=== PATIENT | female | born 1945 | race African-American/Black ===

== ENCOUNTER 2019-03-21 18:35 | Emergency (ER) | payer OTHER ==
[~2019-03-21] VITALS: Ht 154.9 cm; Wt 53.5 kg
--- NOTE | 2019-03-21 18:49 | NUR ---
ED Nurse Note: PT FROM HOME PRESENTS TO ED WITH VAGINAL PAIN THAT RADIATES TO HER LEFT SIDE OF ABDOMEN WHICH STARTED AN HOUR PRIOR ED ARRIVAL. DENIES VAGINAL BLEEDING OR DISCHARGE. AAO X4, AMBULATORY.
[2019-03-21] MEDS ORDERED: Omnipaque-300 100ml vial INJ PRN (19:00)
--- NOTE | 2019-03-21 19:09 | NUR ---
HAND-OFF: Report given to SONIA SPENCE.
[2019-03-21 19:24] LABS: APPEARANCE,URINE SLIGHTLY CLOUDY; BILIRUBIN, URINE NEGATIVE (NEGATIVE); COLOR,URINE PALE YELLOW; GLUCOSE, URINE (UA) NEGATIVE (NEGATIVE); KETONES,URINE NEGATIVE (NEGATIVE); LEUKOCYTE ESTERASE ,URINE 3+ (NEGATIVE); NITRITE,URINE NEGATIVE (NEGATIVE); PH,URINE 6 (4.5-8.0); PROTEIN,URINE 2+ (NEGATIVE); UROBILINOGEN,URINE NORMAL MG/DL (0.0-1.0)
[2019-03-21 19:53] LABS: HEMATOCRIT 31.6 % (37.0-47.0); HEMOGLOBIN 10.5 G/DL (12.0-16.0); MEAN CORPUSCULAR VOLUME 84 FL (80-99); PLATELET COUNT 178 K/UL (150-450); RED BLOOD COUNT 3.76 M/UL (4.20-5.40); RED CELL DISTRIBUTION WIDTH 11.9 % (11.6-14.8); WHITE BLOOD COUNT 14.6 K/UL (4.8-10.8)
[2019-03-21 20:07] LABS: ALANINE AMINOTRANSFERASE 25 U/L (12-78); ALBUMIN 4.7 G/DL (3.4-5.0); ALBUMIN/GLOBULIN RATIO 1.6 (1.0-2.7); ALKALINE PHOSPHATASE 101 U/L (46-116); ANION GAP 10 mmol/L (5-15); ASPARTATE AMINO TRANSFERASE 24 U/L (15-37); BILIRUBIN,TOTAL 0.5 MG/DL (0.2-1.0); BLOOD UREA NITROGEN 26 mg/dL (7-18); CALCIUM 10.5 MG/DL (8.5-10.1); CARBON DIOXIDE 29 MMOL/L (21-32); CHLORIDE 107 MMOL/L (98-107); CREATININE 0.8 MG/DL (0.55-1.30); SODIUM 145 MMOL/L (136-145)
[2019-03-21] MEDS ORDERED: cefTRIAXone 1 GM in NS 55 ML IVPB ONE (20:15)
--- NOTE | 2019-03-21 21:45 | Diagnostic Imaging Report ---
Indication:Lower abdominal and pelvic pain Technique: Grayscale and duplex Doppler imaging of the abdomen pelvis performed utilizing a transabdominal scan. No endovaginal study performed per ordering M.D. Comparison: None Findings: The liver is echogenic consistent with fatty infiltration. Gallbladder is unremarkable. There is no ascites. There is a 7 mm cyst within the right kidney. Aorta is unremarkable. CBD measures 2 mm. No hydronephrosis identified. The demonstrated part of the pancreas appears normal. There is a calcified mass in the posterior part of the pelvis demonstrated. This may be part of the uterus which is noted adjacently. Please refer to the CT report for more information. The mass on this exam as about 4 cm measurement but is poorly seen due to dense calcification and shadowing. Urinary bladder is unremarkable. Neither ovary is seen. IMPRESSION: Fatty liver. Calcified mass within the pelvis. Please refer to the CT report for more information.
--- NOTE | 2019-03-21 21:45 | Emergency Room Report ---
History of Present Illness General Chief Complaint: Abdominal Pain Source: Patient Present Illness HPI 73-year-old female with history of an unknown cancer as she is unsure of what kind of cancer she has as well as uterine prolapse here complaining of sudden onset of vaginal pain that is radiating to left lower quadrant that started an hour prior to arrival to [facility] today. Rating the pain 10 out of 10 however reporting it is subsided upon arrival denying any vaginal discharge or urinary frequency and urgency. Denies fever and chills, chest pain, shortness of breath, palpitation, diffuse abdominal pain, nausea vomiting. Patient reports that she was diagnosed with possible leukemia and however it could be some other cancer as she is unsure whether it was leukemia or another cancer and is under the care of oncologist without any chemotherapy or resection. Reports that every 3 months she gets checked for cancer and has had CAT scan and PET scan done recently without any changes in comparison to previous imaging. Has not taken medication for symptom relief. Patient is also taking tramadol for sciatic pain. Denies constipation or diarrhea. Allergies: Coded Allergies: No Known Allergies (Unverified , 03/21/19) Patient History Past Medical History: see triage record Past Surgical History: unable to obtain Pertinent Family History: none Now: No Immunizations: UTD Reviewed Nursing Documentation: PMH: Agreed; PSxH: Agreed Nursing Documentation-PMH Past Medical History: No History, Except For Hx Cancer: Yes Review of Systems All Other Systems: negative except mentioned in HPI Physical Exam Vital Signs Date Time Temp Pulse Resp B/P (MAP) Pulse Ox O2 Delivery O2 Flow Rate FiO2 03/21/19 18:39 98.2 70 18 149/80 (103) 96 Room Air Sp02 EP Interpretation: reviewed, normal General Appearance: no apparent distress, alert, GCS 15, non-toxic Head: normocephalic, atraumatic Eyes: bilateral eye normal inspection, bilateral eye PERRL ENT: hearing grossly normal, normal pharynx, no angioedema, normal voice Neck: full range of motion, supple/symm/no masses Respiratory: chest non-tender, lungs clear, normal breath sounds, no rhonchi, no wheezing, speaking full sentences Cardiovascular #1: regular rate, rhythm, no edema, no JVD, no murmur Gastrointestinal: normal bowel sounds, non tender, soft, no mass, no organomegaly, non-distended, no guarding, no rebound Rectal: deferred Genitourinary: no CVA tenderness, other - Uterine prolapse noted Musculoskeletal: back normal, gait/station normal, normal range of motion, non- tender Neurologic: alert, oriented x3, responsive, motor strength/tone normal, sensory intact, speech normal Psychiatric: judgement/insight normal, memory normal, mood/affect normal, no suicidal/homicidal ideation Skin: no rash Lymphatic: no adenopathy Medical Decision Making PA Attestation Diagnosis and treatment plans were reviewed and discussed with my supervising physician Dr. García Diagnostic Impression: Primary Impression: Mass of uterine adnexa Additional Impressions: UTI (urinary tract infection) Uterine fibroid ER Course 73-year-old female with history of an unknown cancer as she is unsure of what kind of cancer she has as well as uterine prolapse here complaining of sudden onset of vaginal pain that is radiating to left lower quadrant that started an hour prior to arrival to [place] [facility] today. Rating the pain 10 out of 10 however reporting it is subsided upon arrival denying any vaginal discharge or urinary frequency and urgency. Denies fever and chills, chest pain, shortness of breath, palpitation, diffuse abdominal pain, nausea vomiting. Patient reports that she was diagnosed with possible leukemia and however it could be some other cancer as she is unsure whether it was leukemia or another cancer and is under the care of oncologist without any chemotherapy or resection. Reports that every 3 months she gets checked for cancer and has had CAT scan and PET scan done recently without any changes in comparison to previous imaging. Has not taken medication for symptom relief. Patient is also taking tramadol for sciatic pain. Denies constipation or diarrhea. Ddx considered but are not limited to: appendicitis, cholecystis, gastritis, gastroenteritis, UTI, pyelonephritis, SBO, diverticulitis, influenza with GI manifestation, uterine prolapse, carcinoma Vital signs: are WNL, pt. is afebrile H&PE are most consistent with: UTI, adnexal mass most likely secondary to uterine fibroids based on CT scan results. ORDERS: abdominal CT, abdominal pain set, EKG, abdominal US, keflex ED INTERVENTIONS: Rocephin, NS bolus DISCHARGE: At this time pt. is stable for d/c to home. Will provide printed patient care instructions, and any necessary prescriptions. Care plan and follow up instructions have been discussed with the patient prior to discharge. Patient to follow-up with drone pilot and possibly oncologist if needed and to verify the mass. However most likely secondary to the uterine fibroids based on CT scan reports. If worsening symptoms return to emergency room. EKG Diagnostic Results Rate: normal Rhythm: NSR ST Segments: no acute changes Other Impression no acute ST changes Chest X-Ray Diagnostic Results Chest X-Ray Diagnostic Results : Chest X-Ray Ordered: Yes # of Views/Limited/Complete: 1 View Indication: Other EP Interpretation: Yes PA Xray: Interpretation reviewed, by supervising MD, and agrees with findings. Interpretation: no consolidation, no effusion, no pneumothorax Impression: No acute disease Electronically Signed by: Alfa Ramirez PA-C CT/MRI/US Diagnostic Results CT/MRI/US Diagnostic Results #1: Imaging Test Ordered: Abdominal ultrasound Impression Steatosis. Gallbladder is unremarkable. CBD, kidneys, and spleen are unremarkable. CT/MRI/US Diagnostic Results #2: Imaging Test Ordered: Pelvic ultrasound Impression US PELVIS: Calcified mass in the right adnexa is likely a large subserosal fibroid based on the CT. Bilateral sioux ovaries are not visualized. CT/MRI/US Diagnostic Results #3: Imaging Test Ordered: Abdominal pelvis CT scan with IV and oral contrast Impression CT ABDOMEN & PELVIS With Contrast: Lower lungs: No acute findings. Liver: Unremarkable. Gallbladder: Unremarkable. No biliary dilatation. Spleen, pancreas, and adrenal glands: No acute findings. Nonspecific prominent pancreatic duct measuring 3 mm, upper limits of normal. No pancreatic mass. Kidneys: No hydronephrosis or obstructive nephrolithiasis. Bowel: No bowel obstruction. Appendix: No convincing appendicitis. Bladder: Unremarkable. Pelvic organs: 6.5 cm mass in the pelvis with multiple calcifications, likely a subserosal fibroid. Uterus also contains multiple underlying smaller lesions which are likely more fibroids. Ovaries are not seen. No free fluid. Vessels: No aortic aneurysm. Bones: No acute fracture. Last Vital Signs Date Time Temp Pulse Resp B/P (MAP) Pulse Ox O2 Delivery O2 Flow Rate FiO2 03/21/19 18:49 77 16 Room Air 03/21/19 18:39 98.2 149/80 (103) 96 Disposition: HOME, SELF-CARE Condition: Stable Referrals: NON PHYSICIAN (PCP) Patient Instructions: Pelvic Mass, Urinary Tract Infection, [id number], Uterine Fibroids, [id number] Additional Instructions: Follow-up with your drone pilot for further assessment and testing of the mass that has been noted on CT scan and ultrasound. Take medication as directed. If worsening symptoms return to emergency room. Alfa Guerrero Mar 21, 2019 21:45
--- NOTE | 2019-03-21 21:56 | Diagnostic Imaging Report ---
Indication: Abdominal pain Technique: Continuous helical transaxial imaging of the abdomen and pelvis was obtained from the lung bases to the pubic symphysis during intravenous contrast administration. Coronal 2-D reformats were also obtained. Study obtained in a Siemens sensation [address] Automatic Exposure Control was utilized. Total Dose length Product (DLP): 716.[address] Dose Index Volume (CTDIvol): 0.7 mGy Comparison: None Findings: Mild posterior basal atelectasis demonstrated. Hiatal hernia noted. There are multiple lymph nodes within the retroperitoneum and celiac axis peripancreatic region and hailee hepatis. There are abnormal nodes within the pelvis as well involving the pelvic sidewall and iliac chain. Normal appendix noted. There is a calcified mass projecting posteriorly within the pelvis just anterior to the sacrum measuring about 6.6 x 7 x 5.8 cm. The mass is notable for multiple calcifications and is probably a fibroid but appears somewhat exophytic adjacent to the body of the uterus. Theoretically this could be ovarian. No evidence of bowel obstruction, free fluid or free air. Tiny umbilical hernia containing fat demonstrated. Moderate calcification of aorta demonstrated. Subcentimeter cysts noted within the right kidney. Gallbladder is unremarkable. The liver and spleen and pancreas are unremarkable. There is no biliary ductal dilatation identified. There is a mild anterolisthesis at L4-5. There is some narrowing of intervertebral disc at this level and hypertrophied facets. IMPRESSION: Lymphadenopathy within the abdomen and pelvis with nodes in the retroperitoneum, iliac regions, hailee hepatis, celiac axis. Findings concerning for neoplasm. Consider metastatic disease or lymphoma. 7 cm posterior a presacral mass probably exophytic uterine fibroid. Hiatal hernia Atherosclerotic disease Small right renal cyst. Tiny umbilical hernia containing fat. Mild L4-[address] scanner at [facility] is accredited by the [employer] and the scans are performed using dose optimization techniques as appropriate to a performed exam including Automatic Exposure control.
[2019-03-21] MEDS ORDERED: CEPHALEXIN500 MG ORAL (21:58)
[2019-03-21] MEDS ORDERED: IBUPROFEN600 MG ORAL (21:58)
[2019-03-21 22:10] VITALS: BP 149/80
--- NOTE | 2019-03-21 22:10 | NUR ---
ER DISCHARGE NOTE: Patient is cleared to be discharged per ERMD, pt is aox4, on room air, with stable vital signs. pt was given dc and prescription instructions, pt was able to verbalize understanding, pt id band and iv site removed without complications. pt is able to ambulate with steady gait. pt took all belongings.
--- NOTE | 2019-03-22 14:19 | Diagnostic Imaging Report ---
Indication: Dyspnea Comparison: None A single view chest radiograph was obtained. Findings: Cardiomediastinal appearance is within normal limits for age. The lungs are clear. Pulmonary vascularity is appropriate. The diaphragmatic contour is smooth and costophrenic angles are sharp. No pleural effusions are identified. The bones are unremarkable. Impression: No acute findings
--- NOTE | 2019-03-22 14:20 | Cardiology Report ---
APPROVED REPORT EKG Measurement Heart [id number] Normal sinus rhythm Normal ECG
== END 2019-03-21 22:10 | disposition home or self-care (01) ==
LOC: EMR 19:28
DX: C80.1 Malignant (primary) neoplasm, unspecified (principal); N39.0 Urinary tract infection, site not specified; D25.9 Leiomyoma of uterus, unspecified
CPT/HCPCS: 36415; 71045; 74177; 76700; 76856; 80053; 81003; 83690; 84484; 85007; 85025; 85610; 85730; 86850; 86900; 86901; 87086; 93005; 96365; 99284; J0696; Q9967

== ENCOUNTER 2019-12-20 21:54 | Emergency (ER) | payer MEDICARE ==
[~2019-12-20] VITALS: Ht 160 cm; Wt 54.4 kg
[~2019-12-20 21:54] MED LIST: CEPHALEXIN500 MG ORAL; IBUPROFEN600 MG ORAL
[2019-12-20 22:10] VITALS: BP 143/70
[2019-12-20] MEDS ORDERED: Omnipaque-300 100ml vial INJ PRN (22:30)
[2019-12-20] MEDS ORDERED: Morphine Sulfate 4mg/ml Inj (IV USE ONLY) IVP ONE (22:30)
[2019-12-20 23:01] LABS: HEMATOCRIT 37.1 % (37.0-47.0); HEMOGLOBIN 11.6 G/DL (12.0-16.0); MEAN CORPUSCULAR VOLUME 89 FL (80-99); PLATELET COUNT 220 K/UL (150-450); RED BLOOD COUNT 4.19 M/UL (4.20-5.40); RED CELL DISTRIBUTION WIDTH 14.9 % (11.6-14.8)
[2019-12-20 23:03] LABS: WHITE BLOOD COUNT 33.8 K/UL (4.8-10.8)
[2019-12-20 23:13] LABS: ANION GAP 6 mmol/L (5-15); BLOOD UREA NITROGEN 19 mg/dL (7-18); CALCIUM 10.9 MG/DL (8.5-10.1); CARBON DIOXIDE 31 MMOL/L (21-32); CHLORIDE 108 MMOL/L (98-107); CREATININE 1.4 MG/DL (0.55-1.30); POTASSIUM 4.5 MMOL/L (3.5-5.1); SODIUM 145 MMOL/L (136-145)
[2019-12-20 23:17] LABS: ALANINE AMINOTRANSFERASE 22 U/L (12-78); ALBUMIN 4.6 G/DL (3.4-5.0); ALBUMIN/GLOBULIN RATIO 1.4 (1.0-2.7); ALKALINE PHOSPHATASE 101 U/L (46-116); ASPARTATE AMINO TRANSFERASE 16 U/L (15-37); BILIRUBIN,TOTAL 0.2 MG/DL (0.2-1.0)
--- NOTE | 2019-12-20 23:24 | Emergency Room Report ---
History of Present Illness General Chief Complaint: Abdominal Pain Source: Patient Present Illness HPI 74-year-old female presents the ED for evaluation. Brought in by EMS from home. Complaining of abdominal pain. States since pain started after eating some peanuts tonight. Pain is left-sided, sharp, 10 out of 10, nonradiating. Denies fevers or chills. Denies chest pain. No other aggravating relieving factors. Denies any other associated symptoms Allergies: Coded Allergies: No Known Allergies (Unverified , 03/21/19) COVID-19 Screening Contact w/high risk pt: No Experienced COVID-19 symptoms?: No COVID-19 Testing performed CARPENTER/LABOR: No Patient History Past Medical History: other - PID Past Surgical History: none Pertinent Family History: none Social History: Denies: smoking, alcohol use, drug use Immunizations: UTD Reviewed Nursing Documentation: PMH: Agreed; PSxH: Agreed Nursing Documentation-PMH Hx Cancer: Yes Review of Systems All Other Systems: negative except mentioned in HPI Physical Exam Vital Signs Date Time Temp Pulse Resp B/P (MAP) Pulse Ox O2 Delivery O2 Flow Rate FiO2 12/20/19 21:57 97.9 78 16 143/70 (94) 99 Room Air Sp02 EP Interpretation: reviewed, normal General Appearance: alert, GCS 15, non-toxic, mild distress Head: normocephalic, atraumatic Eyes: bilateral eye normal inspection, bilateral eye PERRL ENT: hearing grossly normal, normal pharynx, no angioedema, normal voice Neck: full range of motion, supple/symm/no masses Respiratory: chest non-tender, lungs clear, normal breath sounds, speaking full sentences Cardiovascular #1: regular rate, rhythm, no edema Cardiovascular #2: 2+ carotid (R), 2+ carotid (L), 2+ radial (R), 2+ radial (L) , 2+ dorsalis pedis (R), 2+ dorsalis pedis (L) Gastrointestinal: normal bowel sounds, soft, non-distended, no guarding, no rebound, tenderness Rectal: deferred Genitourinary: normal inspection, no CVA tenderness Musculoskeletal: back normal, normal range of motion, gait/station normal, non- tender Neurologic: alert, motor strength/tone normal, oriented x3, sensory intact, responsive, speech normal Psychiatric: judgement/insight normal, memory normal, mood/affect normal, no suicidal/homicidal ideation Reflexes: 3+ bicep (R), 3+ bicep (L), 3+ tricep (R), 3+ tricep (L), 3+ knee (R) , 3+ knee (L) Lymphatic: no adenopathy Medical Decision Making Diagnostic Impression: Primary Impression: Pancreatitis Qualified Codes: K85.90 - Acute pancreatitis without necrosis or infection, unspecified Additional Impression: Leukemia Qualified Codes: C95.90 - Leukemia, unspecified not having achieved remission ER Course Hospital Course 74-year-old female presents to ED with abdominal pain Differential diagnoses include: BPH, cystitis, pyelonephritis, kidney stone Clinical course Patient placed on stretcher. quality assurance monitor chassis. After initial history and physical I ordered labs, IV fluids, UA, pain medication and CT scan Labs - marked leukocytosis, Hb/Hct stable. electrolytes ok. Lipase > 1000 CT abdomen and pelvis - Lymph nodes: Confluent periportal lymph nodes almost encasing the portal vein measuring 5 cm transverse, 4.7 cm AP and cc. Cluster of lymph nodes are seen extending around the superior mesenteric artery, retroperitoneal, pericaval mid mesenteric bulky lymph nodes measuring up to 4 cm. Additional bilateral pelvic sidewall lymph nodes. Overall findings are suggestive of probable lymphoma. Metastatic disease may also be considered. patient notes diagnosis of leukemia. this explains her leukocytosis. no fever. CXR no infiltrates. I do not suspect infectious process because of insurance patient will be transferred I feel this is a highly complex case requiring extensive working including EKG/ Rhythm strip, Xray/CT/US, Blood/urine lab work, repeat exams while in ED, and administration of strong opiates/narcotics for pain control, admission to hospital or close patient follow up. Diagnosis - pancreatitis, leukemia transferred in serious condition Laboratory Tests Test 12/20/19 22:20 White Blood Count 33.8 K/UL (4.8-10.8) *H Red Blood Count 4.19 M/UL (4.20-5.40) L Hemoglobin 11.6 G/DL (12.0-16.0) L Hematocrit 37.1 % (37.0-47.0) Mean Corpuscular Volume 89 FL (80-99) Mean Corpuscular Hemoglobin 27.6 PG (27.0-31.0) Mean Corpuscular Hemoglobin Concent 31.1 G/DL (32.0-36.0) L Red Cell Distribution Width 14.9 % (11.6-14.8) H Platelet Count 220 K/UL (150-450) Mean Platelet Volume 5.7 FL (6.5-10.1) L Neutrophils (%) (Auto) % (45.0-75.0) Lymphocytes (%) (Auto) % (20.0-45.0) Monocytes (%) (Auto) % (1.0-10.0) Eosinophils (%) (Auto) % (0.0-3.0) Basophils (%) (Auto) % (0.0-2.0) Differential Total Cells Counted 100 Neutrophils % (Manual) 1 % (45-75) L Lymphocytes % (Manual) 97 % (20-45) H Monocytes % (Manual) 2 % (1-10) Eosinophils % (Manual) 0 % (0-3) Basophils % (Manual) 0 % (0-2) Band Neutrophils 0 % (0-8) Reactive Lymphocytes 2+ Platelet Estimate Adequate Platelet Morphology Normal Polychromasia 1+ Anisocytosis 1+ Prothrombin Time 11.0 SEC (9.30-11.50) Prothromb Time International Ratio 1.0 (0.9-1.1) Activated Partial Thromboplast Time 23 SEC (23-33) Sodium Level 145 MMOL/L (136-145) Potassium Level 4.5 MMOL/L (3.5-5.1) Chloride Level 108 MMOL/L (98-107) H Carbon Dioxide Level 31 MMOL/L (21-32) Anion Gap 6 mmol/L (5-15) Blood Urea Nitrogen 19 mg/dL (7-18) H Creatinine 1.4 MG/DL (0.55-1.30) H Estimat Glomerular Filtration Rate 44.7 mL/min (>60) Glucose Level 134 MG/DL (74-106) H Calcium Level 10.9 MG/DL (8.5-10.1) H Total Bilirubin 0.2 MG/DL (0.2-1.0) Aspartate Amino Transf (AST/SGOT) 16 U/L (15-37) Alanine Aminotransferase (ALT/SGPT) 22 U/L (12-78) Alkaline Phosphatase 101 U/L (46-116) Total Protein 7.9 G/DL (6.4-8.2) Albumin 4.6 G/DL (3.4-5.0) Globulin 3.3 g/dL Albumin/Globulin Ratio 1.4 (1.0-2.7) Lipase 1221 U/L (73-393) H EKG Diagnostic Results Rate: normal Rhythm: NSR ST Segments: no acute changes ASA given to the pt in ED: No Rhythm Strip Diag. Results EP Interpretation: yes Rhythm: NSR, no PVC's, no ectopy Chest X-Ray Diagnostic Results Chest X-Ray Diagnostic Results : Chest X-Ray Ordered: Yes # of Views/Limited/Complete: 1 View Indication: Other EP Interpretation: Yes Interpretation: no consolidation, no effusion, no pneumothorax, no acute cardiopulmonary disease Impression: No acute disease Electronically Signed by: Electronically signed by Vinay Patterson MD CT/MRI/US Diagnostic Results CT/MRI/US Diagnostic Results : Imaging Test Ordered: CT A/P Impression Procedure: CT Abdomen Pelvis w/Contrast CT abdomen pelvis with contrast History: Abdominal pain left-sided 03/04. Technique: Axial contrast-enhanced CT of the abdomen and pelvis with coronal, sagittal reformatted images. CTDI is 4.9 mGy and DLP is 253 mGy- cm. Technique more: One or more of the following dose reduction techniques were used: automated exposure control, adjustment of the mA and/or kV according to patient size, use of iterative reconstruction technique. Comparison: 03/21/2019 Findings: Lung bases: Mild bilateral basilar dependent atelectasis. Left inferior axillary 1.2 cm lymph nodes. Mild asymmetry of the left greater than right breast density. Please correlate with any recent mammogram. Distal heart and esophagus: Small hiatal hernia. Right peridiaphragmatic 1 cm lymph nodes. Liver: No intrahepatic lesion or ductal dilation. Gallbladder: Normal Spleen: At upper limits of normal. Cluster of lymph nodes seen surrounding the splenic artery near the splenic hilum. Pancreas: Normal Lymph nodes: Confluent periportal lymph nodes almost encasing the portal vein measuring 5 cm transverse, 4.7 cm AP and cc. Cluster of lymph nodes are seen extending around the superior mesenteric artery, retroperitoneal, pericaval mid mesenteric bulky lymph nodes measuring up to 4 cm. Additional bilateral pelvic sidewall lymph nodes. Overall findings are suggestive of probable lymphoma. Metastatic disease may also be considered. Aorta: Normal caliber Adrenals: Normal Kidneys: Small bilateral renal cortical cysts. Left-sided hydronephrosis and hydroureter with the mid left ureteral punctate stone . Bowel: Normal appendix. No inflammatory change or signs for obstruction. Rectum and sigmoid colon appear nondistended. Moderate stool in right colon. Pelvis: Right uterine partially calcified fibroid measuring 7 x 5.5 cm. Urinary bladder is unremarkable. Bones: No lytic or blastic bony lesion. Lower lumbar spine L4-5, L5-S1 facet arthropathy. 5.5 mm anterior listhesis L4 and L5. Impression: 1. Punctate left mid ureteral 1.5 mm stones with upstream left hydroureter and hydronephrosis. 2. Small renal cortical cysts. 3. Bulky intra-abdominal clustered lymphadenopathy measuring 5 x 4.7 x 4. 7 cm surrounding the portal vein. Additional bulky lymphadenopathy is seen in the mid mesentery, pericaval, retroperitoneal, bilateral pelvic sidewall. Left inferior axillary lymph node. Spleen at upper limits of normal. Overall findings suggestive of lymphoma or lymphoproliferative disease. Dictated By: Yoon Tafoya M.D. Electronically Signed By: Yoon Tafoya M.D. Signed Date/Time 12/21/19 0029 CC: Vinay Patterson MD Last Vital Signs Date Time Temp Pulse Resp B/P (MAP) Pulse Ox O2 Delivery O2 Flow Rate FiO2 12/20/19 22:59 97.8 12/20/19 22:10 82 16 143/70 99 Room Air Status: improved Disposition: SHORT-TERM HOSP Condition: Serious Referrals: [facility],REFERRING (PCP) Vinay Patterson MD Dec 20, 2019 23:24
[2019-12-21] VITALS: BP_SYST 141; BP_DIAS 14; BP_DIAS 74
--- NOTE | 2019-12-21 00:30 | Diagnostic Imaging Report ---
CT abdomen pelvis with contrast History: Abdominal pain left-sided 03/04. Technique: Axial contrast-enhanced CT of the abdomen and pelvis with coronal, sagittal reformatted images. CTDI is 4.9 mGy and DLP is 253 mGy- cm. Technique more: One or more of the following dose reduction techniques were used: automated exposure control, adjustment of the mA and/or kV according to patient size, use of iterative reconstruction technique. Comparison: 03/21/2019 Findings: Lung bases: Mild bilateral basilar dependent atelectasis. Left inferior axillary 1.2 cm lymph nodes. Mild asymmetry of the left greater than right breast density. Please correlate with any recent mammogram. Distal heart and esophagus: Small hiatal hernia. Right peridiaphragmatic 1 cm lymph nodes. Liver: No intrahepatic lesion or ductal dilation. Gallbladder: Normal Spleen: At upper limits of normal. Cluster of lymph nodes seen surrounding the splenic artery near the splenic hilum. Pancreas: Normal Lymph nodes: Confluent periportal lymph nodes almost encasing the portal vein measuring 5 cm transverse, 4.7 cm AP and cc. Cluster of lymph nodes are seen extending around the superior mesenteric artery, retroperitoneal, pericaval mid mesenteric bulky lymph nodes measuring up to 4 cm. Additional bilateral pelvic sidewall lymph nodes. Overall findings are suggestive of probable lymphoma. Metastatic disease may also be considered. Aorta: Normal caliber Adrenals: Normal Kidneys: Small bilateral renal cortical cysts. Left-sided hydronephrosis and hydroureter with the mid left ureteral punctate stone 4/50. Bowel: Normal appendix. No inflammatory change or signs for obstruction. Rectum and sigmoid colon appear nondistended. Moderate stool in right colon. Pelvis: Right uterine partially calcified fibroid measuring 7 x 5.5 cm. Urinary bladder is unremarkable. Bones: No lytic or blastic bony lesion. Lower lumbar spine L4-5, L5-S1 facet arthropathy. 5.5 mm anterior listhesis L4 and L5. Impression: 1. Punctate left mid ureteral 1.5 mm stones with upstream left hydroureter and hydronephrosis. 2. Small renal cortical cysts. 3. Bulky intra-abdominal clustered lymphadenopathy measuring 5 x 4.7 x 4. 7 cm surrounding the portal vein. Additional bulky lymphadenopathy is seen in the mid mesentery, pericaval, retroperitoneal, bilateral pelvic sidewall. Left inferior axillary lymph node. Spleen at upper limits of normal. Overall findings suggestive of lymphoma or lymphoproliferative disease.
[2019-12-21 00:31] LABS: APPEARANCE,URINE CLEAR; BILIRUBIN, URINE NEGATIVE (NEGATIVE); COLOR,URINE PALE YELLOW; GLUCOSE, URINE (UA) NEGATIVE (NEGATIVE); KETONES,URINE NEGATIVE (NEGATIVE); LEUKOCYTE ESTERASE ,URINE NEGATIVE (NEGATIVE); NITRITE,URINE NEGATIVE (NEGATIVE); PH,URINE 6 (4.5-8.0); PROTEIN,URINE NEGATIVE (NEGATIVE); UROBILINOGEN,URINE NORMAL MG/DL (0.0-1.0)
[2019-12-21 01:35] VITALS: BP 138/76
--- NOTE | 2019-12-21 10:00 | Diagnostic Imaging Report ---
Procedure: XRAY Chest 1v Reason for study: Abdominal pain Comparison films: 03/21/2019. FINDINGS: A single one view chest is obtained. Vascularity is normal. The lung marroquin are clear bilaterally. Cardiac and mediastinal silhouette are within normal limits. CP angles are sharp. The bony thorax appear unremarkable. IMPRESSION: NO ACUTE CARDIOPULMONARY DISEASE.
== END 2019-12-21 01:39 | disposition short-term general hospital (02) ==
LOC: EDBD 21:54 → EMR 22:15
DX: K85.90 Acute pancreatitis without necrosis or infection, unspecified (principal); C95.90 Leukemia, unspecified not having achieved remission; D72.829 Elevated white blood cell count, unspecified; N28.1 Cyst of kidney, acquired; N13.2 Hydronephrosis with renal and ureteral calculous obstruction; D25.9 Leiomyoma of uterus, unspecified
CPT/HCPCS: 36415; 71045; 74177; 80053; 81003; 83605; 83690; 85007; 85025; 85610; 85730; 86850; 86900; 86901; 87040; 93005; 96361; 96374; 96375; 99284; J2270; J2405; J7030; Q9967; S0028

== ENCOUNTER 2019-12-23 08:21 | Emergency (ER) | payer MEDICARE ==
[~2019-12-23] VITALS: Ht 157.5 cm; Wt 56.7 kg
--- NOTE | 2019-12-23 08:47 | Emergency Room Report ---
History of Present Illness General Chief Complaint: Abdominal Pain Source: Patient Present Illness HPI Disclaimer: Please note that this report is being documented using DRAGON technology. This can lead to erroneous entry secondary to incorrect interpretation by the dictating instrument. HPI: 74-year-old female history of leukemia recently diagnosed with pancreatitis presents to the ED for abdominal pain. Patient was seen in this emergency department on 12/19 and transferred to [facility] for treatment of pancreatitis. She states an ultrasound showed gallstones. Patient discharged yesterday however early this morning microbiology lab informed us of positive blood culture, gram-positive cocci in clusters in the anaerobic bottle. I had notified the patient at home and she stated that she was already on her way to the emergency department for persistent abdominal pain. States it is 10/10, nonradiating localized in the epigastrium left upper quadrant. Feels the same as the prior episode of pancreatitis. States she was not sent home with any pain medication. She was able to drink but not eat yet. Denies fever, chills, cough, chest pain, shortness of breath, vomiting, diarrhea, dysuria hematuria. Not currently in chemotherapy or radiation is being followed by her oncologist for her leukemia. PMH: Leukemia, pancreatitis PSH: Reviewed Allergies: Ibuprofen Social Hx: Denies alcohol use Allergies: Coded Allergies: IBUPROFEN (Verified Allergy, Unknown, 12/23/19) COVID-19 Screening Contact w/high risk pt: No Experienced COVID-19 symptoms?: No COVID-19 Testing performed [employer]: No Patient History Now: No Nursing Documentation-PMH Hx Cancer: Yes - leukemia Review of Systems All Other Systems: negative except mentioned in HPI Physical Exam Vital Signs Date Time Temp Pulse Resp B/P (MAP) Pulse Ox O2 Delivery O2 Flow Rate FiO2 12/23/19 08:26 98.2 70 19 155/98 (117) 98 Room Air General: Awake and alert, appears uncomfortable HEENT: NC/AT. EOMI. Cardiovascular: RRR. S1 and S2 normal. No murmur appreciated Resp: Normal work of breathing. No cough, wheezing or crackles appreciated Abdomen: Abdomen is soft, nondistended. Tender palpation of the epigastrium, left upper quadrant. No masses. Lower quadrants are nontender. No guarding. Skin: Intact. No abrasions, laceration or rash over the exposed skin MSK: Normal tone and bulk. Moving all extremities. No obvious deformity. Neuro: Awake and alert. Mentating appropriately. Procedures Critical Care Time Critical Care Time Total critical care time: Approximately 45 minutes Due to a high probability of clinically significant, life threatening deterioration, the patient required the highest level of preparedness to intervene emergently and I personally spent this critical care time directly and personally managing the patient. This critical care time included obtaining a history, examining the patient, pulse oximetry, ordering and reviewing studies , ordering treatments, evaluating response to treatment and updating management plan as needed, frequent reassessment and discussion with other providers as well as arranging for ultimate disposition. This critical to care time was performed to assess and manage the high probability of life-threatening deterioration that could result in multiorgan failure. This critical care time is separate from the separately billable procedures and treating other patients. Medical Decision Making Diagnostic Impression: Primary Impression: Leukemia Additional Impressions: Positive blood culture Abdominal pain ER Course 74-year-old female history of leukemia recent hospital admission for pancreatitis presents with continued abdominal pain and recent positive blood culture. The patient is nonseptic appearing at this time, afebrile, stable vital signs. She is complaining of abdominal pain consistent with recent pancreatitis which she states was attributed to gallstones. Will repeat labs and cultures and arrange for admission. Patient will be given antibiotics. 1150: Labs show an increasingly elevated white count which may either be secondary to the patient's history of leukemia or to acute infection. She was covered with broad antibiotics. Lipase returned to normal. Remainder labs within normal limits. Continues to complain of abdominal pain. Additional fluids and pain medication provided. Patient will be transferred for insurance reasons to [facility], Dr. Barbosa is the accepting physician. Patient stable for transfer. Laboratory Tests Test 12/23/19 08:45 White Blood Count 40.1 K/UL (4.8-10.8) *H Red Blood Count 4.24 M/UL (4.20-5.40) Hemoglobin 11.5 G/DL (12.0-16.0) L Hematocrit 36.9 % (37.0-47.0) L Mean Corpuscular Volume 87 FL (80-99) Mean Corpuscular Hemoglobin 27.1 PG (27.0-31.0) Mean Corpuscular Hemoglobin Concent 31.1 G/DL (32.0-36.0) L Red Cell Distribution Width 13.9 % (11.6-14.8) Platelet Count 235 K/UL (150-450) Mean Platelet Volume 5.6 FL (6.5-10.1) L Neutrophils (%) (Auto) % (45.0-75.0) Lymphocytes (%) (Auto) % (20.0-45.0) Monocytes (%) (Auto) % (1.0-10.0) Eosinophils (%) (Auto) % (0.0-3.0) Basophils (%) (Auto) % (0.0-2.0) Differential Total Cells Counted 100 Neutrophils % (Manual) 11 % (45-75) L Lymphocytes % (Manual) 86 % (20-45) H Monocytes % (Manual) 2 % (1-10) Eosinophils % (Manual) 0 % (0-3) Basophils % (Manual) 0 % (0-2) Band Neutrophils 1 % (0-8) Reactive Lymphocytes 2+ Platelet Estimate Adequate Platelet Morphology Normal Hypochromasia 1+ Urine Color Pale yellow Urine Appearance Clear Urine pH 6 (4.5-8.0) Urine Specific [place] 1.010 (1.005-1.035) Urine Protein Negative (NEGATIVE) Urine Glucose (UA) Negative (NEGATIVE) Urine Ketones 1+ (NEGATIVE) H Urine Blood 3+ (NEGATIVE) H Urine Nitrite Negative (NEGATIVE) Urine Bilirubin Negative (NEGATIVE) Urine Urobilinogen Normal MG/DL (0.0-1.0) Urine Leukocyte Esterase Negative (NEGATIVE) Urine RBC 2-4 /HPF (0 - 2) H Urine WBC 0-2 /HPF (0 - 2) Urine Squamous Epithelial Cells Few /LPF (NONE/OCC) Urine Bacteria Few /HPF (NONE) Sodium Level 139 MMOL/L (136-145) Potassium Level 3.3 MMOL/L (3.5-5.1) L Chloride Level 101 MMOL/L (98-107) Carbon Dioxide Level 27 MMOL/L (21-32) Anion Gap 11 mmol/L (5-15) Blood Urea Nitrogen 10 mg/dL (7-18) Creatinine 1.4 MG/DL (0.55-1.30) H Estimated Glomerular Filtration Rate 44.7 mL/min (>60) Glucose Level 122 MG/DL (74-106) H Calcium Level 10.0 MG/DL (8.5-10.1) Total Bilirubin 0.7 MG/DL (0.2-1.0) Aspartate Amino Transferase (AST) 26 U/L (15-37) Alanine Aminotransferase (ALT) 31 U/L (12-78) Alkaline Phosphatase 94 U/L (46-116) Total Protein 8.0 G/DL (6.4-8.2) Albumin 4.6 G/DL (3.4-5.0) Globulin 3.4 g/dL Albumin/Globulin Ratio 1.4 (1.0-2.7) Lipase 238 U/L (73-393) Last Vital Signs Date Time Temp Pulse Resp B/P (MAP) Pulse Ox O2 Delivery O2 Flow Rate FiO2 12/23/19 08:26 98.2 70 19 155/98 (117) 98 Room Air Disposition: SHORT-TERM HOSP Condition: Stable Referrals: NON PHYSICIAN (PCP) Taran Vegas MD Dec 23, 2019 08:47
[2019-12-23 08:50] VITALS: BP 155/95
--- NOTE | 2019-12-23 08:55 | NUR ---
ED Nurse Note: Pt walked into ED for L upper abdominal pain 03/04. Pt was here previously for same issue. She states Dr Pfeiffer called her and told her to come to ED for bacteria in blood. She is alert and ox4, ambulatory. Set up on monitor.
[2019-12-23] MEDS ORDERED: Piperacillin/Tazobactam 3.375 GM in NS 110 ML IVPB ONE (09:00)
[2019-12-23] MEDS ORDERED: Morphine Sulfate 2mg/ml Inj(IV/IM USE ONLY) IVP ONE ×3 (09:00→10:45)
[2019-12-23 09:06] LABS: APPEARANCE,URINE CLEAR; BILIRUBIN, URINE NEGATIVE (NEGATIVE); COLOR,URINE PALE YELLOW; GLUCOSE, URINE (UA) NEGATIVE (NEGATIVE); HEMATOCRIT 36.9 % (37.0-47.0); HEMOGLOBIN 11.5 G/DL (12.0-16.0); KETONES,URINE 1+ (NEGATIVE); LEUKOCYTE ESTERASE ,URINE NEGATIVE (NEGATIVE); MEAN CORPUSCULAR VOLUME 87 FL (80-99); NITRITE,URINE NEGATIVE (NEGATIVE); PH,URINE 6 (4.5-8.0); PLATELET COUNT 235 K/UL (150-450); PROTEIN,URINE NEGATIVE (NEGATIVE); RED BLOOD COUNT 4.24 M/UL (4.20-5.40); RED CELL DISTRIBUTION WIDTH 13.9 % (11.6-14.8); UROBILINOGEN,URINE NORMAL MG/DL (0.0-1.0)
[2019-12-23 09:08] LABS: WHITE BLOOD COUNT 40.1 K/UL (4.8-10.8)
[2019-12-23 09:13] LABS: ANION GAP 11 mmol/L (5-15); BLOOD UREA NITROGEN 10 mg/dL (7-18); CARBON DIOXIDE 27 MMOL/L (21-32); CHLORIDE 101 MMOL/L (98-107); CREATININE 1.4 MG/DL (0.55-1.30); POTASSIUM 3.3 MMOL/L (3.5-5.1); SODIUM 139 MMOL/L (136-145)
[2019-12-23] MEDS ORDERED: Vancomycin 1 GM in NS 275 ML IVPB ONE (09:15)
[2019-12-23 09:19] LABS: ALANINE AMINOTRANSFERASE 31 U/L (12-78); ALBUMIN 4.6 G/DL (3.4-5.0); ALBUMIN/GLOBULIN RATIO 1.4 (1.0-2.7); ALKALINE PHOSPHATASE 94 U/L (46-116); ASPARTATE AMINO TRANSFERASE 26 U/L (15-37); BILIRUBIN,TOTAL 0.7 MG/DL (0.2-1.0)
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
[2019-12-23] MEDS ORDERED: Morphine Sulfate 2mg/ml Inj(IV/IM USE ONLY) ONE (10:36)
[2019-12-23 11:30] VITALS: BP 148/92
[2019-12-23] MEDS ORDERED: HYDROcodone/Acetamin 7.5/325 tab ORAL ONE (12:00)
[2019-12-23 13:45] VITALS: BP 142/90
--- NOTE | 2019-12-23 13:56 | NUR ---
ED Nurse Note: Report given to Wolfgang SPENCE.
--- NOTE | 2019-12-23 14:06 | NUR ---
ED Nurse Note: Pt taken by ambulance to [facility] with all belongings. No acute distress.
[2019-12-23 14:07] VITALS: BP 136/87
== END 2019-12-23 14:09 | disposition short-term general hospital (02) ==
LOC: EMR 08:43
DX: C95.90 Leukemia, unspecified not having achieved remission (principal); R10.13 Epigastric pain
CPT/HCPCS: 36415; 80053; 81003; 83690; 85007; 85025; 87040; 87081; 96365; 96368; 96375; 96376; 99291; J2270; J2543; J3370; J7050